=== PATIENT | female | born 1965 | race Caucasian/White ===

== ENCOUNTER 2021-07-24 07:04 | Outpatient (RCR) | payer BC, SELFPAY | END 2021-07-24 23:59 | LOC: NS 07:04 | PROVIDERS: PCP Family Medicine; Referring Provider Family Medicine; Visit Provider Family Medicine | DX: Z71.3 Dietary counseling and surveillance (principal); E66.9 Obesity, unspecified; K21.9 Gastro-esophageal reflux disease without esophagitis; I10 Essential (primary) hypertension; R14.0 Abdominal distension (gaseous); Z68.36 Body mass index [BMI] 36.0-36.9, adult | CPT/HCPCS: 97802 ==

== ENCOUNTER 2021-08-21 08:03 | Outpatient (RCR) | payer BC, SELFPAY | END 2021-08-23 23:59 | disposition home or self-care (01) | LOC: NS 08:03 | PROVIDERS: PCP Family Medicine; Referring Provider Family Medicine; Visit Provider Family Medicine | DX: Z71.3 Dietary counseling and surveillance (principal); E66.9 Obesity, unspecified; Z68.36 Body mass index [BMI] 36.0-36.9, adult; K21.9 Gastro-esophageal reflux disease without esophagitis; I10 Essential (primary) hypertension; R14.0 Abdominal distension (gaseous) | CPT/HCPCS: 97803 ==

== ENCOUNTER 2021-09-10 07:59 | Outpatient (RCR) | payer BC, SELFPAY | END 2021-09-23 23:59 | LOC: NS 07:59 | PROVIDERS: PCP Family Medicine; Referring Provider Family Medicine; Visit Provider Family Medicine | DX: Z71.3 Dietary counseling and surveillance (principal); E66.9 Obesity, unspecified; Z68.36 Body mass index [BMI] 36.0-36.9, adult; K21.9 Gastro-esophageal reflux disease without esophagitis; I10 Essential (primary) hypertension | CPT/HCPCS: 97803 ==

== ENCOUNTER 2021-09-24 10:26 | Outpatient (RCR) | payer BC, SELFPAY | END 2021-10-23 23:59 | LOC: NS 10:26 | PROVIDERS: PCP Family Medicine; Referring Provider Family Medicine; Visit Provider Family Medicine | DX: Z71.3 Dietary counseling and surveillance (principal); E66.9 Obesity, unspecified; Z68.36 Body mass index [BMI] 36.0-36.9, adult; K21.9 Gastro-esophageal reflux disease without esophagitis; I10 Essential (primary) hypertension | CPT/HCPCS: 97803 ==

== ENCOUNTER 2022-01-01 07:56 | Outpatient (RCR) | payer BC, SELFPAY | END 2022-01-23 23:59 | LOC: NS 07:56 | PROVIDERS: PCP Family Medicine; Referring Provider Family Medicine; Visit Provider Family Medicine | DX: Z71.3 Dietary counseling and surveillance (principal); E66.9 Obesity, unspecified; Z68.36 Body mass index [BMI] 36.0-36.9, adult; K21.9 Gastro-esophageal reflux disease without esophagitis; I10 Essential (primary) hypertension | CPT/HCPCS: 97803 ==

== ENCOUNTER 2022-02-19 08:45 | Outpatient (RCR) | payer BC, SELFPAY | END 2022-02-23 23:59 | LOC: NS 08:45 | PROVIDERS: PCP Family Medicine; Referring Provider Family Medicine; Visit Provider Family Medicine | DX: Z71.3 Dietary counseling and surveillance (principal); E66.9 Obesity, unspecified; Z68.36 Body mass index [BMI] 36.0-36.9, adult; K21.9 Gastro-esophageal reflux disease without esophagitis; I10 Essential (primary) hypertension | CPT/HCPCS: 97803 ==